=== PATIENT | male | born 1985 | race Caucasian/White ===

== ENCOUNTER 2024-07-10 17:38 | Emergency (ER) | payer OTHER, SELFPAY ==
--- NOTE | 2024-07-10 17:50 | ED_ITS ---
HPI - General Adult General Chief complaint: Eye Problems Stated complaint: lt eye irritation Time Seen by Provider: 07/10/24 18:00 Source: patient, RN notes reviewed and old records reviewed Mode of arrival: ambulatory Limitations: no limitations History of Present Illness ED Provider: Keri [facility] narrative: Patient is a 38-year-old male presenting to the ED with complaint of foreign shona dy sensation to left eye since Monday night. Unsure what he may have gotten in his eye. Denies any blurred vision or other visual impairment. Does not wear contacts or glasses. Denies pain. Denies headaches. Has been flushing multiple times per day with little change. complaint: left eye irritation Onset (ago): day(s) Location: eyes Treatments prior to arrival: other (flushing with water) Related Data Previous Rx's ?Medication ?Instructions ?Recorded erythromycin 5 mg/gram (0.5 %) eye 0.5 inch ophthalmic (eye) BID #3.5 07/10/24 ointment grams Allergies Allergy/AdvReac Type Severity Reaction Status Date / Time No Known Allergies Allergy Verified 07/10/24 17:53 Review of Systems Review of Systems: As per HPI Yes all other systems are reviewed and are negative Constitutional: Constitutional: Reports as per HPI PMFSH Social History Social History Advance Directives: No Advance Directives Information Provided: Yes Do you have a plan to hurt others: No Plan Physical Exam ED Vital Signs: Vital Signs - 24 hr 07/10/24 17:51 Temperature 98.0 F Pulse Rate 71 Respiratory Rate 16 Blood Pressure 128/71 Pulse Oximetry 96 Oxygen Delivery Method Room Air BMI result Body Mass Index 28.1 Vital signs have been reviewed and appear to be correct. Blood pressure normal. Heart rate normal. Respiratory rate normal. Temperature normal. Oxygen saturation normal. Const General: cooperative, healthy appearing and no acute distress Orientation/consciousness: oriented to person, oriented to place, oriented to time and patient oriented x3 Limitations: no limitations HENMT Head: Yes normocephalic and Yes atraumatic Ears: external ears normal General nose exam: Normal external nose present Face and sinus: Yes face symmetric Mouth: oropharynx normal and moist mucous membranes Throat: Yes uvula midline Eyes Visual [place]: normal visual [place] by confrontation Alignment and Position: alignment normal and position normal Periorbital: periorbital findings normal Eyelids: Yes eyelids normal Conjunctivae: conjunctival abnormal left conjunctival injection diffuse (mild) Sclerae: sclerae normal Corneas: corneas abnormal on the left fluorescein used and abrasion punctate and at the following clock position (09:00) Pupils: Equal, round and reactive pupils present EOM: EOMs intact bilaterally Neck Neck: Yes normal visual inspection and Yes supple Resp Effort & Inspection: normal respiratory effort and able to speak in complete sentences Auscultation: clear to auscultation bilaterally Cardio Rate: regular rate Rhythm: regular rhythm Heart sounds: S1 normal heart sound present and S2 normal heart sound present GI Palpation (GI): Soft to palpation and nontender Auscultation: normoactive bowel sounds General: Yes no CVA tenderness Back/Spine/Pelvis Back: no CVA tenderness Skin General skin exam: elasticity normal and turgor normal Neuro General: oriented to person, oriented to place, oriented to time, patient oriented x3, moves all extremities, no focal motor deficits and CN's II-XI intact bilaterally Cranial nerves: Yes Equal, round and reactive pupils present Cognition (Neuro): normal cognition Extrem General: Yes full ROM, Yes no pedal edema and Yes no calf tenderness Psych Mental Status: mental status grossly normal Affect: normal affect Thought process: Normal thought process present Medical Decision Making Medical Decision Making [facility] Narrative: Patient is a 38-year-old male presenting to the ED with complaint of foreign body sensation to left eye since Monday night. On exam patient is awake, A+Ox3, VS WNL, afebrile, normal neurological exam without focal deficits, physical exam findings as above. Given reported symptoms and physical exam findings, initial differential includes but is not limited to corneal abrasion, conjunctivitis. Do not suspect corneal ulcer, herpes zoster ophthalmicus, scleritis. Punctate corneal abrasion noted on [place] lamp exam with fluorescein stain. Results discussed with patient and all questions answered. Will treat with erythromycin ointment, advised not to rub eyes. Will refer to for any ongoing c oncerns. Patient verbalized understanding of and agreement with plan. Differential Diagnosis Differential Diagnoses: The differential diagnosis associated with the presentation includes As per [facility] External Record Review External record reviewed: Inpatient record, Office record and Outpatient record Prescription Management I considered prescription management with: Antibiotic Discharge Plan Discharge Clinical Impression: Corneal abrasion Patient Disposition: Home, Self-Care Instructions: Corneal Abrasion (DC) Additional Instructions: You were evaluated in the emergency department today for eye irritation. Your exam showed a corneal abrasion, which is a scratch the surface of your eye. This should heal on its own in a few days. You are being prescribed an antibiotic ointment to prevent infection. Follow-up with the morning show producer for any ongoing symptoms. Do not rub your eyes as this can cause further inju ry. Prescriptions: New erythromycin 5 mg/gram (0.5 %) ointment 0.5 inch ophthalmic (eye) BID Qty: 3.5 0RF Rx Instructions: left eye Referrals: Jaspal Garsia [Physician] - Print Language: Azeri
[2024-07-10 17:51] VITALS: BP 128/71; PULSE 71; RESP 16; TEMP 36.7; O2SAT 96; BMI 28.1
[2024-07-10] MEDS: Fluorescein Sodium STRIP 1 STRIP EYE-BOTH (18:16)
--- NOTE | 2024-07-10 18:16 | PC.NURSE ---
PROVIDER SAW PATIENT IN TRIAGE, DID EXAM IN RP AND DISCHARGED FROM THERE
[2024-07-10 18:17] VITALS: BP 128/71; PULSE 71; RESP 16; TEMP 36.7; O2SAT 96
== END 2024-07-10 18:18 | disposition home or self-care (01) ==
PROVIDERS: Emergency Provider Emergency Medicine Emergency Medical Services
DX: S05.02XA Injury of conjunctiva and corneal abrasion without foreign body, left eye, initial encounter (principal); X58.XXXA Exposure to other specified factors, initial encounter; Y93.9 Activity, unspecified; Y92.89 Other specified places as the place of occurrence of the external cause; Y99.8 Other external cause status
CPT/HCPCS: 99282; 99283